=== PATIENT | female | born 1970 | race Caucasian/White ===

== ENCOUNTER 2018-08-12 15:46 | Inpatient (IN) | payer MEDICAID ==
[~2018-08-12] VITALS: Ht 165.1 cm; Wt 67.7 kg
[~2018-08-12 15:46] MED LIST: FAMO20TA37 PO; OMEP-110 PO; ONDA4TAB13 SL; SUCR1TAB33 PO
[2018-08-12] MEDS ORDERED: ASPIRIN 81 MG TABLET CHEW PO ONE (16:00)
[2018-08-12] MEDS ORDERED: SODIUM CHLORIDE 0.9% 1,000ML IVBOLUS ONE ×2 (16:30→18:00)
[2018-08-12] MEDS ORDERED: SODIUM CHLORIDE FLUSH 10ML SYR IVF ONE (16:30)
[2018-08-12 16:34] LABS: BASOPHILS # (AUTO) 0.05 x10^3/uL (0-0.1); BASOPHILS % (AUTO) 0 % (0-1); EOSINOPHILS % (AUTO) 0 % (1-7); LYMPHOCYTES # (AUTO) 1.61 x10^3/uL (1-3.4); LYMPHOCYTES % (AUTO) 11 % (22-44); MD NO; MEAN CORPUSCULAR HEMOGLOBIN 31.5 pg (27.0-34.8); MEAN CORPUSCULAR HGB CONC 33.3 g/dL (32.4-35.8); MEAN CORPUSCULAR VOLUME 94.5 fL (80-100); MEAN PLATELET VOLUME 8.1 fL (7.4-10.4); MONOCYTES # (AUTO) 1.04 x10^3/uL (0.2-0.8); MONOCYTES % (AUTO) 7 % (2-9); NEUTROPHILS # (AUTO) 11.34 x10^3/uL (1.8-6.8); NEUTROPHILS % (AUTO) 81 % (42-75); PLATELET COUNT 364 x10^3/uL (130-400); RED BLOOD COUNT 4.55 x10^6/uL (3.82-5.3); RED CELL DISTRIBUTION WIDTH 15.8 % (9.6-15.2)
[2018-08-12] MEDS ORDERED: ASPIRIN 81 MG TABLET CHEW ONE (16:41)
[2018-08-12 16:42] LABS: ALBUMIN 4.5 g/dL (3.4-5.0); ANION GAP 15 mmol/L (5-15); CALCIUM 9.6 mg/dL (8.5-10.1); CHLORIDE 93 mmol/L (98-107)
[2018-08-12] MEDS ORDERED: ONDANSETRON ODT 4 MG ONE (16:45)
[2018-08-12 16:48] LABS: ALANINE AMINOTRANSFERASE 27 U/L (12-78); ALKALINE PHOSPHATASE 91 U/L (45-117); BILIRUBIN,TOTAL 0.9 mg/dL (0.2-1.0); CREATININE 1.42 mg/dL (0.55-1.02); TOTAL PROTEIN 8.8 g/dL (6.4-8.2); TROPONIN I < 0.015 ng/mL (0.000-0.045)
[2018-08-12] MEDS ORDERED: POTASSIUM CHLORIDE 20 MEQ TAB.ER.PRT ONE (17:21)
[2018-08-12] MEDS ORDERED: POTASSIUM CHLORIDE 20 MEQ TAB.ER.PRT PO ONE (17:30)
[2018-08-12] MEDS ORDERED: ONDANSETRON ODT 4 MG PO ONE (17:30)
--- NOTE | 2018-08-12 18:09 | NUR ---
PT UP TO RESTROOM. AMBULATES WITH A STEADY GAIT. PT STATES POSITIVE RESULTS FROM MEDICATION.
[2018-08-12 19:04] LABS: CULTURE INDICATED? YES; MICROSCOPIC INDICATED
[2018-08-12] MEDS ORDERED: ACETAMINOPHEN 325 MG TABLET ONE (19:58)
[2018-08-12] MEDS ORDERED: ACETAMINOPHEN 325 MG TABLET PO ONE (20:00)
[2018-08-12] MEDS ORDERED: PROMETHAZINE 25 MG/ML, 1ML ONE (20:05)
[2018-08-12] MEDS ORDERED: PROMETHAZINE 25 MG/ML, 1ML IM ONE (20:30)
[2018-08-12] MEDS ORDERED: POTASSIUM CHLORIDE 40 MEQ in SODIUM CHLORIDE 0.9% 500 ML IV ONE (21:00)
[2018-08-12] MEDS ORDERED: PROMETHAZINE 25 MG/ML, 1ML IM PRN (21:00)
[2018-08-12] MEDS ORDERED: PHARMACY MAY ADJ FOR RENAL FX MC PRN (21:00)
[2018-08-12] MEDS ORDERED: LIDODERM 5% PATCH TD PRN (21:00)
[2018-08-12] MEDS ORDERED: LABETALOL 5MG/ML, 20ML IVPush PRN (21:00)
[2018-08-12] MEDS ORDERED: D5%-0.45NACL+KCL 20MEQ 1,000 ML IV SCH (21:00)
[2018-08-12] MEDS ORDERED: BISACODYL 10 MG SUPP PR PRN (21:00)
[2018-08-12] MEDS ORDERED: LORazepam 2 MG/ML, 1ML IVPush PRN (21:00)
[2018-08-12] MEDS ORDERED: AMOX-291 PO (21:02)
[2018-08-12] MEDS ORDERED: IBUP-1222 PO (21:02)
[2018-08-12] MEDS ORDERED: HYDR-3237 PO (21:02)
[2018-08-12 22:22] VITALS: BP 169/93
[2018-08-12] MEDS: FAMOTIDINE 20 MG/2 ML IVPush SCH (23:00)
[2018-08-12] MEDS: NICOTINE 21 MG/24 HR PATCH.TD24 TD SCH (23:00)
[2018-08-12] MEDS: HEPARIN 5,000 UNITS/ML, 1ML SQ SCH (23:00)
[2018-08-13] VITALS (7 sets, daily range): BP systolic 115–181; BP diastolic 75–104
[2018-08-13 06:14] LABS: ANION GAP 8 mmol/L (5-15); CALCIUM 7.8 mg/dL (8.5-10.1); CHLORIDE 110 mmol/L (98-107); CREATININE 0.78 mg/dL (0.55-1.02)
[2018-08-13 06:31] LABS: BASOPHILS # (AUTO) 0.03 x10^3/uL (0-0.1); BASOPHILS % (AUTO) 0 % (0-1); EOSINOPHILS % (AUTO) 0 % (1-7); LYMPHOCYTES # (AUTO) 1.82 x10^3/uL (1-3.4); LYMPHOCYTES % (AUTO) 17 % (22-44); MD NO; MEAN CORPUSCULAR HEMOGLOBIN 30.8 pg (27.0-34.8); MEAN CORPUSCULAR HGB CONC 32.4 g/dL (32.4-35.8); MEAN CORPUSCULAR VOLUME 95.1 fL (80-100); MEAN PLATELET VOLUME 8.2 fL (7.4-10.4); MONOCYTES # (AUTO) 0.94 x10^3/uL (0.2-0.8); MONOCYTES % (AUTO) 9 % (2-9); NEUTROPHILS # (AUTO) 8.01 x10^3/uL (1.8-6.8); NEUTROPHILS % (AUTO) 74 % (42-75); PLATELET COUNT 307 x10^3/uL (130-400); RED BLOOD COUNT 3.97 x10^6/uL (3.82-5.3)
[2018-08-13] MEDS ORDERED: POTASSIUM CHLORIDE 40 MEQ in SODIUM CHLORIDE 0.9% 500 ML IV ONE (07:30)
[2018-08-13] MEDS ORDERED: MAGNESIUM SULFATE 3 GM in SODIUM CHLORIDE 0.9% 100 ML IV ONE (07:30)
[2018-08-13 08:15] LABS: HEMOGLOBIN A1C 4.7 % (4.2-6.3)
[2018-08-13] MEDS: HEPARIN 5,000 UNITS/ML, 1ML SQ SCH ×2 (08:22→17:03)
[2018-08-13] MEDS: FAMOTIDINE 20 MG/2 ML IVPush SCH (08:22)
[2018-08-13] MEDS: AMOXICILLIN 500 MG CAPSULE PO SCH ×3 (08:30→22:29)
[2018-08-13] MEDS: POTASSIUM CHLORIDE 20 MEQ, MAGNESIUM SULFATE 1 GM, THIAMINE 200 MG, FOLIC ACID 1 MG, MV... IV SCH (14:51)
[2018-08-13] MEDS ORDERED: CHLO473M PO (16:29)
[2018-08-13 16:38] LABS: AMPHETAMINE SCREEN, URINE Negative (Negative); BARBITURATE SCREEN, URINE Negative (Negative); BENZODIAZEPINE SCREEN, URINE Positive (Negative); CANNABINOID SCREEN, URINE Positive (Negative); COCAINE SCREEN, URINE Negative (Negative); METHADONE SCREEN, URINE Negative (Negative); OPIATE SCREEN, URINE Negative (Negative)
[2018-08-13] MEDS ORDERED: CHLORHEXIDINE 15 ML UDC MM SCH (17:00)
[2018-08-13] MEDS: CHLORHEXIDINE GLUCONATE MOUTHWASH 0.12%, 473ML MM SCH ×2 (17:00→22:28)
[2018-08-13] MEDS: PANTOPRAZOLE 40 MG IV IVPush SCH (17:03)
[2018-08-13] MEDS: NICOTINE 21 MG/24 HR PATCH.TD24 TD SCH (22:28)
[2018-08-13] MEDS: morphine SULFATE 10 MG/ML, 1ML IVPush PRN (22:28)
[2018-08-14 01:11] VITALS: BP 131/80
[2018-08-14] MEDS: HEPARIN 5,000 UNITS/ML, 1ML SQ SCH ×2 (04:27→15:57)
[2018-08-14] MEDS: morphine SULFATE 10 MG/ML, 1ML IVPush PRN ×4 (04:27→21:39)
[2018-08-14] MEDS: D5%-0.45NACL+KCL 20MEQ 1,000 ML IV SCH (06:21)
[2018-08-14] MEDS: PANTOPRAZOLE 40 MG IV IVPush SCH ×2 (06:21→15:59)
[2018-08-14 06:37] LABS: ANION GAP 5 mmol/L (5-15); CALCIUM 7.8 mg/dL (8.5-10.1); CHLORIDE 111 mmol/L (98-107); CREATININE 0.63 mg/dL (0.55-1.02)
[2018-08-14 07:30] VITALS: BP 128/76
[2018-08-14] MEDS: CHLORHEXIDINE GLUCONATE MOUTHWASH 0.12%, 473ML MM SCH ×3 (09:00→21:38)
[2018-08-14] MEDS: AMOXICILLIN 500 MG CAPSULE PO SCH ×3 (10:31→21:39)
[2018-08-14 14:16] VITALS: BP 132/73
[2018-08-14] MEDS: POTASSIUM CHLORIDE 20 MEQ, MAGNESIUM SULFATE 1 GM, THIAMINE 200 MG, FOLIC ACID 1 MG, MV... IV SCH (15:58)
[2018-08-14] MEDS ORDERED: PANTOPRAZOLE 20MG TABLET PO SCH (17:00)
[2018-08-14 19:20] VITALS: BP 118/75
[2018-08-14] MEDS: NICOTINE 21 MG/24 HR PATCH.TD24 TD SCH (21:37)
[2018-08-14] MEDS: MELATONIN 5 MG TABLET PO PRN (21:44)
[2018-08-15] MEDS: HEPARIN 5,000 UNITS/ML, 1ML SQ SCH ×3 (00:24→17:15)
[2018-08-15 00:28] VITALS: BP 110/69
[2018-08-15] MEDS: morphine SULFATE 10 MG/ML, 1ML IVPush PRN (02:23)
[2018-08-15 06:05] LABS: ALANINE AMINOTRANSFERASE 37 U/L (12-78); ALBUMIN 2.8 g/dL (3.4-5.0); ANION GAP 4 mmol/L (5-15); CALCIUM 7.9 mg/dL (8.5-10.1); CHLORIDE 115 mmol/L (98-107)
[2018-08-15] MEDS: PANTOPRAZOLE 20MG TABLET PO SCH ×2 (06:11→17:15)
[2018-08-15] MEDS: D5%-0.45NACL+KCL 20MEQ 1,000 ML IV SCH ×2 (06:11→15:43)
[2018-08-15 06:24] LABS: BASOPHILS # (AUTO) 0.04 x10^3/uL (0-0.1); BASOPHILS % (AUTO) 1 % (0-1); EOSINOPHILS # (AUTO) 0.09 x10^3/uL (0-0.4); EOSINOPHILS % (AUTO) 1 % (1-7); LYMPHOCYTES # (AUTO) 3.63 x10^3/uL (1-3.4); LYMPHOCYTES % (AUTO) 47 % (22-44); MD NO; MEAN CORPUSCULAR HGB CONC 31.8 g/dL (32.4-35.8); MEAN CORPUSCULAR VOLUME 97.3 fL (80-100); MEAN PLATELET VOLUME 8.3 fL (7.4-10.4); MONOCYTES # (AUTO) 0.49 x10^3/uL (0.2-0.8); MONOCYTES % (AUTO) 6 % (2-9); NEUTROPHILS # (AUTO) 3.49 x10^3/uL (1.8-6.8); NEUTROPHILS % (AUTO) 45 % (42-75); PLATELET COUNT 250 x10^3/uL (130-400); RED CELL DISTRIBUTION WIDTH 15.9 % (9.6-15.2)
[2018-08-15 06:30] LABS: ALKALINE PHOSPHATASE 61 U/L (45-117); BILIRUBIN,TOTAL 0.9 mg/dL (0.2-1.0); CREATININE 0.65 mg/dL (0.55-1.02); TOTAL PROTEIN 5.5 g/dL (6.4-8.2)
[2018-08-15 06:56] VITALS: BP 114/68
[2018-08-15] MEDS ORDERED: ONDANSETRON 2MG/ML, 2ML IVPush PRN (08:00)
[2018-08-15] MEDS ORDERED: ONDANSETRON 4 MG TABLET PO PRN (08:00)
[2018-08-15] MEDS: HYDROcodone/APAP 5/325 TABLET PO PRN ×4 (08:59→22:46)
[2018-08-15] MEDS: AMOXICILLIN 500 MG CAPSULE PO SCH ×3 (08:59→20:15)
[2018-08-15] MEDS: CHLORHEXIDINE GLUCONATE MOUTHWASH 0.12%, 473ML MM SCH ×3 (08:59→20:52)
[2018-08-15 14:06] VITALS: BP 117/75
[2018-08-15 19:00] VITALS: BP 119/72
[2018-08-15] MEDS: NICOTINE 21 MG/24 HR PATCH.TD24 TD SCH (20:14)
[2018-08-15] MEDS: MELATONIN 5 MG TABLET PO PRN (20:15)
[2018-08-16] MEDS: HEPARIN 5,000 UNITS/ML, 1ML SQ SCH ×2 (01:19→08:19)
[2018-08-16 02:37] VITALS: BP 99/65
[2018-08-16 06:35] VITALS: BP 115/69
[2018-08-16] MEDS: PANTOPRAZOLE 20MG TABLET PO SCH (06:42)
[2018-08-16 07:25] VITALS: BP 109/69
[2018-08-16] MEDS: AMOXICILLIN 500 MG CAPSULE PO SCH (08:19)
[2018-08-16] MEDS: CHLORHEXIDINE GLUCONATE MOUTHWASH 0.12%, 473ML MM SCH (08:19)
[2018-08-16] MEDS ORDERED: PANT20TA3 PO (09:52)
== END 2018-08-16 11:30 | disposition home or self-care (01) | DRG 640 ==
LOC: ED 20:00 → EDIP 20:39 → 4EST 22:10
PROVIDERS: ADMIT Family Medicine; ATTEND Family Medicine
DX: E87.6 Hypokalemia (principal); N17.0 Acute kidney failure with tubular necrosis; I47.2 Ventricular tachycardia; D72.829 Elevated white blood cell count, unspecified; E86.9 Volume depletion, unspecified; F10.10 Alcohol abuse, uncomplicated; F17.210 Nicotine dependence, cigarettes, uncomplicated; I10 Essential (primary) hypertension; K02.9 Dental caries, unspecified; R11.2 Nausea with vomiting, unspecified; K59.00 Constipation, unspecified; K76.0 Fatty (change of) liver, not elsewhere classified; Z82.3 Family history of stroke
CPT/HCPCS: 36415; 74018; 96360; 99285; J3490; 71046; 74177; 80048; 80053; 80307; 81001; 82040; 83036; 83735; 84484; 84702; 84703; 85025; 87040; 87086; 93005; 93306; G0378; J1644; J2550; J3411; J3475; J3480; Q0162; C9113; J2060; J2270; J7030; J7040

== ENCOUNTER 2020-07-29 01:33 | Inpatient (IN) | payer MEDICAID, OTHER ==
[~2020-07-29] VITALS: Ht 165.1 cm; Wt 63.2 kg
[~2020-07-29 01:33] MED LIST changes: +AMOX-291 PO; +CHLO473M PO; +HYDR-3237 PO; +IBUP-1222 PO; +PANT20TA4 PO
[2020-07-29] MEDS ORDERED: PROMETHAZINE 25 MG/ML, 1ML ONE (01:54)
[2020-07-29 01:55] LABS: BASOPHILS % (AUTO) 0 % (0-1); EOSINOPHILS % (AUTO) 0 % (1-7); LYMPHOCYTES % (AUTO) 7 % (22-44); MEAN CORPUSCULAR HEMOGLOBIN 31.6 pg (27.0-34.8); MEAN CORPUSCULAR HGB CONC 32.9 g/dL (32.4-35.8); MEAN PLATELET VOLUME 7.7 fL (7.4-10.4); MONOCYTES % (AUTO) 2 % (2-9); NEUTROPHILS % (AUTO) 91 % (42-75); PLATELET COUNT 445 x10^3/uL (130-400); RED BLOOD COUNT 4.31 x10^6/uL (3.82-5.3)
[2020-07-29] MEDS ORDERED: LORazepam 2 MG/ML, 1ML ONE (01:56)
[2020-07-29 01:57] LABS: MD NO
[2020-07-29] MEDS ORDERED: SODIUM CHLORIDE FLUSH 10ML SYR IVF ONE (02:00)
[2020-07-29] MEDS ORDERED: LORazepam 2 MG/ML, 1ML IVPush ONE (02:00)
[2020-07-29] MEDS ORDERED: SODIUM CHLORIDE 0.9% 1,000ML IVBOLUS ONE (02:00)
[2020-07-29] MEDS ORDERED: PROMETHAZINE 25 MG/ML, 1ML IM ONE (02:00)
[2020-07-29 02:05] LABS: ALANINE AMINOTRANSFERASE 23 U/L (12-78); ANION GAP 9 mmol/L (5-15); CALCIUM 9.5 mg/dL (8.5-10.1); CHLORIDE 107 mmol/L (98-107)
[2020-07-29 02:10] LABS: ALKALINE PHOSPHATASE 100 U/L (45-117); BILIRUBIN,TOTAL 0.6 mg/dL (0.2-1.0); CREATININE 1.24 mg/dL (0.55-1.02); TOTAL PROTEIN 8.5 g/dL (6.4-8.2); TROPONIN I < 0.015 ng/mL (0.000-0.045)
--- NOTE | 2020-07-29 02:34 | NUR ---
PT BIB EMS, PT STATED HAVING N/V AND WAS TAKING A SHOWER AND FELL AND WOKE UP IN ON THE FLOOR. PT HAS HAD A HEADACHE ALL DAY. PT GIVEN 4MG ZOFRAN AND 250 ML NS DURING TRANSPORT. PT PLACED ON ALL MONITORS, LABS DRAWN, XR AND CT TAKEN. PT MEDICATED PER EMAR, PT STATES NAUSEA HAS IMPROVED, PT UNABLE TO URINATE AT THIS TIME FOR SAMPLE.
--- NOTE | 2020-07-29 02:44 | NUR ---
PER ERP, BP HAS GOTTEN LOWER ON ITS OWN AND OK TO HOLD LABETALOL AT THIS TIME
--- NOTE | 2020-07-29 02:59 | NUR ---
PT TO CT
[2020-07-29] MEDS ORDERED: OMNIPAQUE 350 MG/ML, 100ML BOTTLE ONE (03:00)
[2020-07-29] MEDS ORDERED: LABETALOL 5MG/ML, 20ML IVPush ONE (03:00)
[2020-07-29] MEDS ORDERED: LABETALOL 5MG/ML, 20ML ONE (04:04)
[2020-07-29] MEDS ORDERED: ONDANSETRON 2MG/ML, 2ML ONE (04:04)
[2020-07-29 04:28] LABS: MICROSCOPIC NOT IND
[2020-07-29] MEDS ORDERED: ONDANSETRON 2MG/ML, 2ML IVPush ONE (04:30)
[2020-07-29] MEDS ORDERED: NITROGLYCERIN OINT 2%, 1GM TP ONE ×3 (04:33→05:00)
--- NOTE | 2020-07-29 04:39 | NUR ---
PT'S BLOOD PRESSURE IS STILL ELEVATED, PER ERP, NITRO PASTE ADMIN ON MIDDLE UPPER CHEST, DATE AND TIME ON IT. WILL REASSESS BP.
--- NOTE | 2020-07-29 04:44 | NUR ---
dr. deng at bedside
[2020-07-29] MEDS ORDERED: SODIUM CHLORIDE 0.9% 1,000 ML IV SCH (05:00)
[2020-07-29] MEDS ORDERED: LABETALOL 5MG/ML, 20ML IVPush PRN (05:00)
[2020-07-29] MEDS ORDERED: hydrALAzine 20 MG/ML, 1ML IVPush PRN (05:00)
--- NOTE | 2020-07-29 05:01 | NUR ---
report given to isidoro mccain
--- NOTE | 2020-07-29 05:29 | NUR ---
REPORT GIVEN TO DIEGO PANCHAL
[2020-07-29 05:49] VITALS: BP 173/90
[2020-07-29] MEDS: ACETAMINOPHEN 325 MG TABLET PO PRN ×3 (06:04→20:00)
[2020-07-29] MEDS: PROMETHAZINE 25 MG/ML, 1ML IM PRN ×2 (06:04→14:42)
[2020-07-29 06:31] VITALS: BP 166/89
[2020-07-29] MEDS: HEPARIN 5,000 UNITS/ML, 1ML SQ SCH ×3 (06:33→19:52)
[2020-07-29 07:14] LABS: FREE T4 (FREE THYROXINE) 1.02 ng/dL (0.76-1.46)
[2020-07-29] MEDS ORDERED: PANTOPRAZOLE 40 MG IV IVPush SCH (07:30)
[2020-07-29 07:33] VITALS: BP 152/75
[2020-07-29] MEDS: LOSARTAN 50MG TABLET PO SCH (08:59)
[2020-07-29] MEDS: LEVOTHYROXINE 50 MCG TABLET PO SCH (08:59)
[2020-07-29] MEDS: ONDANSETRON 2MG/ML, 2ML IVPush PRN (09:03)
[2020-07-29 13:35] VITALS: BP 98/62
[2020-07-29] MEDS: NICOTINE 14MG/24 HR PATCH.TD24 TD SCH (14:31)
[2020-07-29] MEDS: SUCRALFATE 1 GM TABLET PO SCH ×2 (16:00→19:52)
[2020-07-29 19:30] VITALS: BP 98/57
[2020-07-29] MEDS: PANTOPRAZOLE 40 MG IV IVPush SCH (19:52)
[2020-07-29 19:56] VITALS: BP 107/70
[2020-07-30 02:05] VITALS: BP 104/68
[2020-07-30] MEDS: ACETAMINOPHEN 325 MG TABLET PO PRN ×3 (02:43→18:18)
[2020-07-30] MEDS: LEVOTHYROXINE 50 MCG TABLET PO SCH (05:04)
[2020-07-30] MEDS: HEPARIN 5,000 UNITS/ML, 1ML SQ SCH ×3 (05:04→21:34)
[2020-07-30] MEDS: ONDANSETRON 2MG/ML, 2ML IVPush PRN (05:09)
[2020-07-30 06:51] VITALS: BP 104/68
[2020-07-30] MEDS: SUCRALFATE 1 GM TABLET PO SCH ×4 (08:16→21:34)
[2020-07-30] MEDS: PANTOPRAZOLE 40 MG IV IVPush SCH ×2 (11:05→21:33)
[2020-07-30] MEDS: LOSARTAN 50MG TABLET PO SCH (11:06)
[2020-07-30 13:05] VITALS: BP 102/63
[2020-07-30] MEDS: NICOTINE 14MG/24 HR PATCH.TD24 TD SCH (16:04)
[2020-07-30 18:53] VITALS: BP 108/68
[2020-07-30] MEDS: HYDROcodone/APAP 5/325 TABLET PO PRN (21:41)
[2020-07-31 01:16] VITALS: BP 110/68
[2020-07-31 05:41] LABS: ANION GAP 6 mmol/L (5-15); CALCIUM 8.4 mg/dL (8.5-10.1); CHLORIDE 110 mmol/L (98-107)
[2020-07-31] MEDS: HYDROcodone/APAP 5/325 TABLET PO PRN ×3 (05:51→22:23)
[2020-07-31] MEDS: SUCRALFATE 1 GM TABLET PO SCH ×4 (07:00→20:25)
[2020-07-31 08:22] VITALS: BP 102/65
[2020-07-31] MEDS: LOSARTAN 50MG TABLET PO SCH (08:25)
[2020-07-31] MEDS: ACETAMINOPHEN 325 MG TABLET PO PRN (08:26)
[2020-07-31] MEDS: PANTOPRAZOLE 40 MG IV IVPush SCH (08:30)
[2020-07-31] MEDS ORDERED: CHLORHEXIDINE 15 ML UDC ONE (09:06)
[2020-07-31] MEDS ORDERED: MIDAZOLAM 1 MG/ML, 5ML ONE ×2 (09:29)
[2020-07-31] MEDS ORDERED: FENTANYL PF 100 MCG/2ML ONE (09:29)
[2020-07-31] MEDS ORDERED: CHLORHEXIDINE 15 ML UDC PO ONE (09:30)
[2020-07-31] MEDS: OMEPRAZOLE 20 MG CAPSULE.DR PO SCH (10:50)
[2020-07-31 12:16] VITALS: BP 110/67
[2020-07-31] MEDS ORDERED: CARVEDILOL 3.125 MG TABLET PO ONE (12:43)
[2020-07-31] MEDS: NICOTINE 14MG/24 HR PATCH.TD24 TD SCH (13:08)
[2020-07-31] MEDS: CARVEDILOL 3.125 MG TABLET PO SCH (17:32)
[2020-07-31 19:37] VITALS: BP 104/63
[2020-08-01 01:06] VITALS: BP 92/56
[2020-08-01] MEDS: CARVEDILOL 3.125 MG TABLET PO SCH (05:36)
[2020-08-01] MEDS: OMEPRAZOLE 20 MG CAPSULE.DR PO SCH (05:36)
[2020-08-01] MEDS: HYDROcodone/APAP 5/325 TABLET PO PRN (05:41)
[2020-08-01 06:51] VITALS: BP 99/67
[2020-08-01] MEDS ORDERED: LOSARTAN 25MG TABLET PO SCH (09:00)
[2020-08-01] MEDS: SUCRALFATE 1 GM TABLET PO SCH ×2 (09:24→11:00)
[2020-08-01] MEDS: ACETAMINOPHEN 325 MG TABLET PO PRN (10:10)
[2020-08-01] MEDS ORDERED: OMEP-110 PO (10:52)
[2020-08-01] MEDS ORDERED: SUCR1TAB33 PO (10:52)
[2020-08-01] MEDS ORDERED: ONDA4TAB7 PO (10:52)
== END 2020-08-01 13:05 | disposition home or self-care (01) | DRG 392 ==
LOC: ED 04:30 → EDIP 04:39 → 3N 05:44 → DCLOUNGE 08-01 12:56
PROVIDERS: ADMIT Internal Medicine; ATTEND Family Medicine
PROC: 0DB68ZX Excision of Stomach, Via Natural or Artificial Opening Endoscopic, Diagnostic (ICD-10-PCS; 2020-07-31)
PROC: 0DB38ZX Excision of Lower Esophagus, Via Natural or Artificial Opening Endoscopic, Diagnostic (ICD-10-PCS; 2020-07-31)
PROC: 0DB98ZX Excision of Duodenum, Via Natural or Artificial Opening Endoscopic, Diagnostic (ICD-10-PCS; principal; 2020-07-31 15:45)
DX: K21.00 Gastro-esophageal reflux disease with esophagitis, without bleeding (principal); I50.30 Unspecified diastolic (congestive) heart failure; K22.10 Ulcer of esophagus without bleeding; E03.9 Hypothyroidism, unspecified; E86.0 Dehydration; F17.200 Nicotine dependence, unspecified, uncomplicated; I11.0 Hypertensive heart disease with heart failure; K29.90 Gastroduodenitis, unspecified, without bleeding; Z20.822 Contact with and (suspected) exposure to COVID-19; K76.0 Fatty (change of) liver, not elsewhere classified; Z87.19 Personal history of other diseases of the digestive system
CPT/HCPCS: 36415; 70450; 71045; 74177; 80048; 80053; 80320; 81003; 83036; 83690; 83880; 84439; 84443; 84481; 84484; 85025; 87635; 88305; 93005; 93306; 93356; 96372; 96374; 96375; 99152; 99153; G0378; J1644; J2250; J2405; J2550; J3010; Q9967; C9113; G0480; J0360; J2060; J7030